=== PATIENT | female | born 1990 | race Caucasian/White ===

== ENCOUNTER → 2017-10-06 13:07 | Outpatient (REF) | payer BC, SELFPAY ==
[2017-10-13 11:42] LABS: Methylphenidate 74 ng/mL; Ritalinic Acid >10000 ng/mL
== END ==
LOC: LBN 13:07
PROVIDERS: PCP Nurse Practitioner Family; Visit Provider Nurse Practitioner Family
DX: Z51.81 Encounter for therapeutic drug level monitoring (principal); Z79.899 Other long term (current) drug therapy
CPT/HCPCS: 80360

== ENCOUNTER 2017-12-02 12:12 | Outpatient (CLI) | payer BC, SELFPAY ==
[2017-12-02 14:15] LABS: D-Dimer 112 ng/mlFEU (<500)
== END 2017-12-02 12:32 ==
PROVIDERS: PCP Nurse Practitioner Family; Visit Provider Nurse Practitioner Family
DX: R07.81 Pleurodynia (principal)
CPT/HCPCS: 36415; 85379

== ENCOUNTER 2018-01-23 09:11 | Outpatient (REF) | payer BC, SELFPAY ==
[2018-01-23 14:36] LABS: *AMPHETAMINES SCREEN URINE Negative (Negative); *BARBITURATES SCREEN URINE Negative (Negative); *BENZODIAZEPINES SCREEN URINE Negative (Negative); Cannabinoids THC Negative (Negative); Cocaine Screen,Urine Negative (Negative); METHADONE URINE SCREEN Negative (Negative); OPIATES URINE SCREEN Negative (Negative)
[2018-01-23 14:39] LABS: Tricyclic Antidepressants Negative (Negative)
[2018-01-30 08:53] LABS: Methylphenidate 369 ng/mL; Ritalinic Acid >10000 ng/mL
== END 2018-01-23 09:31 ==
LOC: LBN 09:11
PROVIDERS: PCP Nurse Practitioner Family; Visit Provider Nurse Practitioner Family
DX: F90.9 Attention-deficit hyperactivity disorder, unspecified type (principal); Z51.81 Encounter for therapeutic drug level monitoring; R03.0 Elevated blood-pressure reading, without diagnosis of hypertension
CPT/HCPCS: 80307; 80360

== ENCOUNTER 2018-03-03 15:50 | Outpatient (REF) | payer BC, SELFPAY ==
--- NOTE | 2018-03-03 15:15 | PAPFT_PTH ---
PATIENT: Rosa Walters LOC: [facility] U#:[id number] AGE/SX: 27/F ROOM: RE03/03/[address]: RAYNE Yanez : 1990 BED: DIS: 03/03/2018 SPEC #: [id number] RECD: 03/03/18 17:55 STATUS: LIBBY LAEXIS #: [id number] CHRISTINA: 03/03/18 15:[address]: Krys Prabhakar DEPT: [facility] Cytology RECD BY: Cindi Mclaughlin ENTERED: 03/03/18 17:56 SP TYPE: PAPFT OT DR: Lily Sheppard APRN Tissues: 1 - CX/ENDOCX FOR PAP SMEARS Procedures: PAP THIN PREP/UVM Screening Comments: [id number]
[2018-03-06 14:03] LABS: Chlamydia Result Negative; GC Result Negative; Specimen Description CERVICAL
== END 2018-03-03 16:10 ==
LOC: LBN 15:50
PROVIDERS: PCP Nurse Practitioner Family; Visit Provider Nurse Practitioner Family
DX: Z11.3 Encounter for screening for infections with a predominantly sexual mode of transmission (principal); Z12.4 Encounter for screening for malignant neoplasm of cervix
CPT/HCPCS: 87491; 87591; 88142

== ENCOUNTER 2018-04-01 00:07 | Outpatient (CLI) | payer BC, SELFPAY ==
[2018-04-01 10:59] LABS: Absolute Basophil Count 0.01 k/cumm (0.0-0.2); Absolute Eosinophil Count 0.36 k/cumm (0.0-0.7); Absolute Lymphocyte Count 1.94 k/cumm (1.2-3.4); Absolute Monocyte Count 0.44 k/cumm (0.11-0.7); Basophils % 0.2; Eosinophils % 6.5; HCT 41.4 % (36.0-46.0); HGB 14.5 g/dL (12.0-15.5); Mean Corpuscular Hemoglobin 30.1 pg (27.0-33.0); Mean Corpuscular Volume 86.1 fL (80-95); Mean Platelet Volume 9.9 fL (8.0-11.0); Monocytes % 7.9; Neutrophils % 50.4; Platelet Count 420 x1000/uL (130-400); RBC 4.81 m/cumm (4.00-5.20); RBC Distribution Width 11.8 % (11.7-14.6); White Blood Cell Count 5.55 k/cumm (4.4-10.8)
[2018-04-01 11:17] LABS: Bilirubin Negative (Negative); Blood Negative (Negative); Clarity Clear; Glucose Negative (Negative); Ketones Negative (Negative); Leukocyte Esterase Trace (Negative); Nitrite Negative (Negative); Urobilinogen 0.2 EU/dL (Up TO 0.2)
[2018-04-01 11:30] LABS: ALT 67 U/L (12-78); AST 35 U/L (15-37); Albumin 4.1 g/dL (3.4-5.0); Alkaline Phosphatase 114 U/L (46-116); Anion Gap 12.2 mmol/L (3-11); BUN 14 mg/dL (7-18); Bacteria Negative HPF (Negative); Bilirubin, Total 0.2 mg/dL (0.2-1.0); CO2 23.8 mmol/L (21.0-32.0); CREATININE 0.87 mg/dL (0.55-1.02); Calcium 8.6 mg/dL (8.5-10.1); Casts Negative LPF (Negative); Chloride 105 mmol/L (98-107); Crystals Negative HPF (Negative); Epithelial Cells Few HPF (Negative); Glucose 87 mg/dL (70-100); Mucus Negative (Negative); Potassium 4.2 mmol/L (3.5-5.1); RBC Negative (0-2); Sodium 141 mmol/L (136-145); TSH (W/Ref FT4) 0.86 uIU/mL (0.358-3.74); Total Protein 7.5 g/dL (6.4-8.2); WBC Negative HPF (0-5)
[2018-04-01 11:31] LABS: C & S Indicated? No
[2018-04-01 12:05] LABS: Hemoglobin A1C 5.3 % (4.5-6.2)
[2018-04-01 13:12] LABS: COMMENT (LAB VIEW ONLY) 32.07 mg/dL; Microalb ug/mg Crea 5.6 ug/mg Cr
[2018-04-03 11:18] LABS: HIV-1/2 Ag & Ab Screen Negative (NEGAT)
== END 2018-04-01 00:27 ==
PROVIDERS: PCP Nurse Practitioner Family; Visit Provider Nurse Practitioner Family
DX: I10 Essential (primary) hypertension (principal); E03.9 Hypothyroidism, unspecified; Z11.4 Encounter for screening for human immunodeficiency virus [HIV]
CPT/HCPCS: 36415; 80053; 87389; 81003; 81015; 82043; 82570; 83036; 84443; 85025

== ENCOUNTER 2018-08-07 08:53 | Outpatient (REF) | payer OTHER, SELFPAY ==
[2018-08-11 14:47] LABS: Methylphenidate 339 ng/mL; Ritalinic Acid >10000 ng/mL
== END 2018-08-07 09:13 ==
LOC: LBN 08:53
PROVIDERS: PCP Nurse Practitioner Family; Visit Provider Nurse Practitioner Family
DX: Z51.81 Encounter for therapeutic drug level monitoring (principal)
CPT/HCPCS: 80360

== ENCOUNTER 2019-10-18 19:35 | Emergency (ER) | payer OTHER, SELFPAY ==
[2019-10-18] VITALS (54 sets, daily range): BP systolic 109–168; BP diastolic 52–114; PULSE 52–138; RESP 1–30; TEMP 36.5; O2SAT 93–100
--- NOTE | 2019-10-18 19:38 | ED.GENADUL_ITS ---
Discharge Plan Disposition Patient Disposition: HOME Condition: Good Discharge Details Clinical Impression: Anaphylactic reaction to bee sting Primary Care Provider: Keeley Savage ED Provider: Brennen Martinez Hester Meds and New Rx's Prescriptions: New prednisone 20 mg tablet 40 mg PO DAILY Qty: 6 RF: 0 Continued Nexplanon 68 mg implant 1 implant SBD ONCE RF: 0 methylphenidate HCl 54 mg tablet extended release 24hr 54 mg PO QAM MDD 54 mg Qty: 28 RF: 0 methylphenidate HCl 54 mg tablet extended release 24hr 54 mg PO DAILY MDD 54 Qty: 28 RF: 0 ipratropium-albuterol 0.5 mg-3 mg(2.5 mg base)/3 mL solution for nebulization 3 ml IH Q8H Qty: 180 RF: 3 fexofenadine [Aller-ease] 180 MG tablet 2 tab PO PRN Qty: 30 RF: 0 albuterol sulfate 2.5 MG/3 ML solution for nebulization 2.5 mg Inhalation Q4H PRN Qty: 1 RF: 0 econazole 1 % cream 1 applic TP BID RF: 0 albuterol sulfate [ProAir HFA] 90 mcg/actuation HFA aerosol inhaler 1 - 2 puff Inhalation .Q4-6H PRN (Reason: shortness of breath or wheezing) Qty: 2 RF: 3 fluticasone propion-salmeterol [Advair Diskus] 250-50 mcg/dose blister with device 1 inh IH BID Qty: 3 RF: 3 epinephrine [EpiPen 2-Lee] 0.3 MG/0.3 ML auto-injector 0.3 mg IM ONCE Qty: 1 RF: 0 Discharge Instructions Instructions: Anaphylaxis (ED) Additional Instructions: Please fill prescriptions tomorrow and begin taking prednisone. Obtain new EpiPen for future use. Follow-up with primary care next week if any issues. Return to ED for throat swelling, difficulty breathing, syncope, chest pain, persistent vomiting. Referrals: Keeley Savage [Primary Care Provider] - Medical Decision Making <Nacho Keene MD - Last Filed: 10/18/19 19:52> 29 yo female with hx of asthma and allergies to bee sting for which she has an epi pen comes in after being stung by a bee. She developed dyspnea and used her epi pen and came here. She arrives tachypneic stating she is having difficulty breathing speaking in 4-5 word sentences. She has mild erythema of upper chest, wheezing in the apices bilaterally, no drooling, caox4. Suspect anaphylaxis will give another dose of epi, albuterol, famotidine and steroids and monitor, she states she has allergy to benadryl and can't take it pt has had the epi pen for 3 years unsure if it was or not. Pt signed out to Dr. Martinez for reassessment after medications, final disposition Differential Diagnosis Differential Diagnosis: anaphylaxis, allergic reaction, asthma <Brennen Martinez MD - Last Filed: 10/19/19 00:16> Patient signed out to me pending observation after receiving epinephrine, Solu- Medrol, Pepcid for bee sting allergy. She has been stable 4 hours post epinephrine. Vital signs are normal. Saturations are normal. Lungs are clear. Patient will be discharged home with prescription for prednisone and new EpiPen's. Follow-up with primary care if problems. Return to ED if recurrent throat swelling, difficulty breathing, chest pain, syncope. Lab Data Lab results reviewed: Yes I reviewed the patient's lab results. Lab results narrative: CBC, CMP unremarkable. HPI <Nacho Keene MD - Last Filed: 10/18/19 19:52> General Mode of arrival: ambulatory . Date/Time Provider Initiated Documentation: 10/18/19 19:36 . Information obtained by: patient . History of Present Illness 29 year old F presents to the emergency department with the chief complaint of shortness of breath, described as moderate, No relieving factors improve symptom(s), No exacerbating factors reported . Related Data Home Medications Medication Instructions Recorded Confirmed fexofenadine [Aller-ease] 2 tab PO PRN #30 tab-cap 04/13/12 10/18/19 albuterol sulfate 2.5 mg INHALATION Q4H PRN #1 box 07/22/14 10/25/18 ipratropium 0.5 mg-albuterol 3 mg 3 ml IH Q8H #180 ml 11/09/17 10/18/19 (2.5 mg base)/3 mL nebulization soln econazole 1 % topical cream 1 applic TP BID 08/15/18 10/18/19 etonogestrel 68 mg subdermal 1 implant SBD ONCE 08/23/18 10/18/19 implant albuterol sulfate 90 mcg/actuation 1 - 2 puff INHALATION .Q4-6H PRN 11/20/18 10/18/19 aerosol inhaler #2 device fluticasone 250 mcg-salmeterol 50 1 inh IH BID #3 unit 01/05/19 mcg/dose blistr powdr for inhalation methylphenidate HCl 54 mg 54 mg PO DAILY #28 tab MDD 54 04/16/19 10/18/19 tablet,extended release 24 hr methylphenidate HCl 54 mg 54 mg PO QAM #28 tab-cap MDD 54 mg 04/16/19 04/16/19 tablet,extended release 24 hr epinephrine [EpiPen 2-Lee] 0.3 mg IM ONCE #1 pack 10/19/19 prednisone 40 mg PO DAILY #6 tab 10/19/19 Previous Rx's Medication Instructions Recorded ipratropium 0.5 mg-albuterol 3 mg 3 ml IH Q8H #180 ml 11/09/17 (2.5 mg base)/3 mL nebulization soln albuterol sulfate 90 mcg/actuation 1 - 2 puff INHALATION .Q4-6H PRN 11/20/18 aerosol inhaler #2 device fluticasone 250 mcg-salmeterol 50 1 inh IH BID #3 unit 01/05/19 mcg/dose blistr powdr for inhalation methylphenidate HCl 54 mg 54 mg PO DAILY #28 tab MDD 54 04/16/19 tablet,extended release 24 hr methylphenidate HCl 54 mg 54 mg PO QAM #28 tab-cap MDD 54 mg 04/16/19 tablet,extended release 24 hr epinephrine [EpiPen 2-Lee] 0.3 mg IM ONCE #1 pack 10/19/19 prednisone 40 mg PO DAILY #6 tab 10/19/19 Allergies Allergy/AdvReac Type Severity Reaction Status Date / Time Sulfa (Sulfonamide Allergy Severe hives Verified 10/18/19 19:48 Antibiotics) diphenhydramine HCl Allergy Verified 10/18/19 19:48 [From Benadryl] Enviromental Allergies Allergy Uncoded 10/18/19 19:48 Review of Systems <Nacho Keene MD - Last Filed: 10/18/19 19:52> All systems reviewed & are unremarkable except as noted in HPI and below Constitutional Constitutional: Denies chills and Denies fever(s) Gastrointestinal Gastrointestinal: Denies vomiting PFSH <Nacho Keene MD - Last Filed: 10/18/19 19:52> Medical History (Updated 10/19/19 @ 00:11 by Brennen Martinez MD) ADHD Allergic rhinitis Anxiety (08/03/11) Asthma Carpal tunnel syndrome Depression (11/06/10) Surgical History SHOULDER SURGERY 2011;RIGHT Family History Mother Mental disorder Depression Father Hemochromatosis Hyperlipidemia Sister No problems noted. Brother No problems noted. Grandfather Heart disease Grandfather No problems noted. Grandmother Heart disease Grandmother No problems noted. Other Substance abuse Social History Smoking/Tobacco Use Status: Never Alcohol Intake: current Alcohol Intake frequency: a few times a month Drug use: Never Substance use type: does not use current occupation: farmworker diversified crops Pets and animals: Yes Pets and animals: dog(s) Current gender identity: female What type of physical activity do you participate in: none Do you feel safe at home: Yes Do you feel safe in your relationship?: Yes Female Reproductive History Menstrual control method: implanted (nexplanon inserted by Bethanie Keene NP XGH=[id number] EXP=11/17/2020) Exam <Nacho Keene MD - Last Filed: 10/18/19 19:52> Const General: in distress Orientation: alert HENMT Head: normal to inspection Ears: external ears normal General nose exam: external nose normal Mouth: moist mucous membranes Eyes General: appearance normal, both eyes and all related structures Neck Neck: normal visual inspection Cardio Rate: regular rate Skin General skin exam: elasticity normal Neuro General: patient alert and patient oriented x3 Extrem General: normal to inspection Psych Mental Status: mental status grossly normal Critical Care Time <Nacho Keene MD - Last Filed: 10/18/19 19:52> Critical Care Time Critical Care Time: Yes Total Critical Care Time: 45 Attestation: time spent administering IM epi, frequent reassesments and hemodynamic monitoring in patient with anaphylaxis with potential to deteriorate at any time Sign Out <Nacho Keene MD - Last Filed: 10/18/19 19:52> Sign Out Data: Sign Out Comment: anaphylaxis, epi at home and here as well, iv famotidine and steroids. Reassess Last updated by Nacho Keene MD at 10/18/19 19:46
[2019-10-18] MEDS: methylPREDNISolone SUCC 125 MG VIAL IVP (19:45)
[2019-10-18] MEDS: FAMOTIDINE 20 MG/50 ML BAG 200 MG IVPB (19:48)
[2019-10-18] MEDS: Normal Saline 1,000 ML 1000 ML IV (19:49)
[2019-10-18] MEDS: EPINEPHrine 1 MG/ML AMP pres-free 0.3 MG IM (19:54)
[2019-10-18] MEDS: Albuterol/Ipratropium 3 ML UPD VIAL UPD (19:55)
[2019-10-18 20:03] LABS: Abs Immature Grans 0.02 10^3/uL (0.0-0.06); Absolute Eosinophil Count 0.29 10^3/uL (0.0-0.7); Absolute Lymphocyte Count 4.13 10^3/uL (1.2-3.4); Absolute Monocyte Count 0.79 10^3/uL (0.1-0.8); Basophils % 0.4; Eosinophils % 2.6; HCT 41.3 % (36.0-46.0); HGB 14.3 g/dL (11.2-15.7); Immature Grans % 0.2; Lymphocytes % 36.7; MCH 30.6 pg (27.0-33.0); MCHC 34.6 % (32.0-36.0); MCV 88.4 fL (80-95); MPV 10.1 fL (8.0-11.0); Neutrophils % 53.1; Nucleated RBC 0 %; Platelet Count 425 10^3/uL (130-400); RBC 4.67 10^6/uL (3.93-5.22); RDW 11.7 % (11.7-14.6); RDW-SD 37.6 fL; WBC 11.24 10^3/uL (4.4-10.8)
[2019-10-18 20:04] LABS: Absolute Basophil Count 0.04 10^3/uL (0.0-0.2); Absolute Neutrophil Count 5.97 10^3/uL (1.2-6.7)
[2019-10-18] MEDS: Albuterol/Ipratropium 3 ML UPD VIAL (20:09)
[2019-10-18 20:18] LABS: ALT 39 U/L (14-59); AST 33 U/L (15-37); Albumin 4.3 g/dL (3.4-5.0); Alkaline Phosphatase 120 U/L (46-116); Anion Gap 13.9 mmol/L (3-11); BUN 17 mg/dL (7-18); Bilirubin, Total 0.3 mg/dL (0.2-1.0); CO2 20.1 mmol/L (21.0-32.0); CREATININE 1.21 mg/dL (0.55-1.02); Calcium 9.7 mg/dL (8.5-10.1); Chloride 104 mmol/L (98-107); Estimated GFR 53.38 (mL/min/1.73m2); Glucose 98 mg/dL (74-106); Potassium 3.5 mmol/L (3.5-5.1); Sodium 138 mmol/L (136-145); Total Protein 7.5 g/dL (6.4-8.2)
== END 2019-10-19 00:20 | disposition home or self-care (01) ==
PROVIDERS: Emergency Medicine; Emergency Provider Emergency Medicine; PCP Nurse Practitioner Family
DX: T63.441A Toxic effect of venom of bees, accidental (unintentional), initial encounter (principal); R06.00 Dyspnea, unspecified
CPT/HCPCS: 80053; 94640; 96361; 96374; 96375; 99291; 85025; J0171; J2930; J7620

== ENCOUNTER 2020-12-05 21:43 | Emergency (ER) | payer OTHER, SELFPAY ==
[2020-12-05 21:45] VITALS: BP 159/94; PULSE 74; RESP 18; TEMP 36.9; O2SAT 100
--- NOTE | 2020-12-05 21:52 | ED.GENADUL_ITS ---
Discharge Plan Disposition Patient Disposition: HOME Condition: Stable Discharge Details Clinical Impression: Laceration of hand, left Primary Care Provider: Keeley Savage ED Provider: Nacho Keene Home Meds and New Rx's Prescriptions: Continued methylphenidate HCl 54 mg tablet extended release 24hr 54 mg PO QAM MDD 54 mg Qty: 28 RF: 0 methylphenidate HCl 54 mg tablet extended release 24hr 54 mg PO DAILY MDD 54 Qty: 28 RF: 0 ipratropium-albuterol 0.5 mg-3 mg(2.5 mg base)/3 mL solution for nebulization 3 ml IH Q8H Qty: 180 RF: 3 fexofenadine [Aller-ease] 180 MG tablet 2 tab PO PRN Qty: 30 RF: 0 albuterol sulfate 2.5 MG/3 ML solution for nebulization 2.5 mg Inhalation Q4H PRN Qty: 1 RF: 0 albuterol sulfate [ProAir HFA] 90 mcg/actuation HFA aerosol inhaler 1 - 2 puff Inhalation .Q4-6H PRN (Reason: shortness of breath or wheezing) Qty: 2 RF: 3 fluticasone propion-salmeterol [Advair Diskus] 250-50 mcg/dose blister with device 1 inh IH BID Qty: 3 RF: 3 epinephrine [EpiPen 2-Lee] 0.3 MG/0.3 ML auto-injector 0.3 mg IM ONCE Qty: 1 RF: 0 lamotrigine 25 mg tablet 25 mg PO BID RF: 0 Discharge Instructions Instructions: Laceration (ED) Additional Instructions: if you have spreading redness or yellow/white discharge from the wound return to the emergency department for evaluation Medical Decision Making 30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 She went to catch it and it broke and caused a 1cm superficial laceration to the left anterior ring finger just distal to the dip joint. Normal sensation and pulses, full range of motion of the finger, no findings to suggest tendon or neurovascular injury. wound is superficial, irrigated and no palpable foreign body or visible foreign body on u/s. Will close with sutures. 2 chromic gut sutures placed without complications, advised of return precautions and sutures should dissolve on their own Differential Diagnosis Differential Diagnosis: laceration, abrasion HPI General Mode of arrival: ambulatory . Date/Time Provider Initiated Documentation: 12/05/20 21:43 . Limitations to Documentation: no limitations . Information obtained by: patient . History of Present Illness 30 year old F presents to the emergency department with the chief complaint of left ring finger cut, described as mild, and it has been constant. No relieving fa ctors improve symptom(s), No exacerbating factors reported . Patient notes no other symptoms.. Patient did receive the following treatments prior to arrival, none Related Data Home Medications Medication Instructions Recorded Confirmed fexofenadine [Aller-ease] 2 tab PO PRN #30 tab-cap 04/13/12 12/05/20 albuterol sulfate 2.5 mg INHALATION Q4H PRN #1 box 07/22/14 12/05/20 ipratropium 0.5 mg-albuterol 3 mg 3 ml IH Q8H #180 ml 11/09/17 12/05/20 (2.5 mg base)/3 mL nebulization soln albuterol sulfate 90 mcg/actuation 1 - 2 puff INHALATION .Q4-6H PRN 11/20/18 12/05/20 aerosol inhaler #2 device fluticasone 250 mcg-salmeterol 50 1 inh IH BID #3 unit 01/05/19 12/05/20 mcg/dose blistr powdr for inhalation methylphenidate HCl 54 mg 54 mg PO DAILY #28 tab MDD 54 04/16/19 12/05/20 tablet,extended release 24 hr methylphenidate HCl 54 mg 54 mg PO QAM #28 tab-cap MDD 54 mg 04/16/19 12/05/20 tablet,extended release 24 hr epinephrine [EpiPen 2-Lee] 0.3 mg IM ONCE #1 pack 10/19/19 12/05/20 lamotrigine 25 mg PO BID 12/05/20 12/05/20 Previous Rx's Medication Instructions Recorded ipratropium 0.5 mg-albuterol 3 mg 3 ml IH Q8H #180 ml 11/09/17 (2.5 mg base)/3 mL nebulization soln albuterol sulfate 90 mcg/actuation 1 - 2 puff INHALATION .Q4-6H PRN 11/20/18 aerosol inhaler #2 device fluticasone 250 mcg-salmeterol 50 1 inh IH BID #3 unit 01/05/19 mcg/dose blistr powdr for inhalation methylphenidate HCl 54 mg 54 mg PO DAILY #28 tab MDD 54 04/16/19 tablet,extended release 24 hr methylphenidate HCl 54 mg 54 mg PO QAM #28 tab-cap MDD 54 mg 04/16/19 tablet,extended release 24 hr epinephrine [EpiPen 2-Lee] 0.3 mg IM ONCE #1 pack 10/19/19 Allergies Allergy/AdvReac Type Severity Reaction Status Date / Time Sulfa (Sulfonamide Allergy Severe hives Verified 12/05/20 21:51 Antibiotics) diphenhydramine HCl Allergy Verified 12/05/20 21:51 [From Benadryl] Enviromental Allergies Allergy Uncoded 12/05/20 21:51 General Stated Complaint: Laceration MALLIKA: 4 Review of Systems All systems reviewed & are unremarkable except as noted in HPI and below Constitutional Constitutional: Denies chills, Denies fever(s) and Denies weakness Cardiovascular Cardiovascular: Denies chest pain and Denies dyspnea Respiratory Respiratory: Denies cough and Denies dyspnea Gastrointestinal Gastrointestinal: Denies abdominal pain, Denies nausea and Denies vomiting Musculoskeletal Musculoskeletal: Denies joint swelling Neurologic Neurologic: Denies weakness Psychiatric Psychiatric: Denies depression [facility] Medical History (Updated 12/05/20 @ 22:06 by Nacho Keene MD) ADHD Allergic rhinitis Anxiety (08/03/11) Asthma Carpal tunnel syndrome Depression (11/06/10) Surgical History SHOULDER SURGERY 2011;RIGHT Family History Mother Mental disorder Depression Father Hemochromatosis Hyperlipidemia Sister No problems noted. Brother No problems noted. Grandfather Heart disease Grandfather No problems noted. Grandmother Heart disease Grandmother No problems noted. Other Substance abuse Social History Smoking/Tobacco Use Status: Never Smoking risk assessment performed?: Yes Alcohol Intake: current Alcohol Intake frequency: a few times a week Alcohol type: beer and hard liquor Drug use: Never Substance use type: does not use current occupation: adoption social worker Pets and animals: Yes Pets and animals: dog(s) Current gender identity: female What type of physical activity do you participate in: none Do you feel safe at home: Yes Do you feel safe in your relationship?: Yes Female Reproductive History Menstrual control method: implanted (nexplanon inserted by Bethanie Keene NP PPN=[id number] EXP=11/17/2020) Exam Const General: no acute distress Orientation: alert [facility] Head: normal to inspection Ears: external ears normal General nose exam: external nose normal Mouth: moist mucous membranes Eyes General: appearance normal, both eyes and all related structures Neck Neck: normal visual inspection Resp Effort & Inspection: normal respiratory effort and able to speak in complete sentences Cardio Rate: regular rate Skin General skin exam: no rashes or lesions noted Neuro General: patient alert and patient oriented x3 Extrem General: full ROM and capillary refill normal Psych Mental Status: mental status grossly normal Course Vital Signs Vital signs: Vital Signs Temperature 36.9 C 12/05/20 21:45 Pulse 74 12/05/20 21:45 Respiratory Rate 18 12/05/20 21:45 Blood Pressure 159/94 H 12/05/20 21:45 Pulse Oximetry 100 12/05/20 21:45 Temperature 36.9 C 12/05/20 21:45 Temperature Source Oral 12/05/20 21:45 Pulse 74 12/05/20 21:45 Respiratory Rate 18 12/05/20 21:45 Blood Pressure 159/94 H 12/05/20 21:45 Blood Pressure Position Sitting 12/05/20 21:45 Pulse Oximetry 100 12/05/20 21:45 Oxygen Delivery Method Room Air 12/05/20 21:45 Oxygen Flow Rate 0 12/05/20 21:45 Pain Level 0 12/05/20 21:45 Procedures Laceration Laceration 1: Site: hand Side (If applicable): left Size (cm): 1 Description: linear Depth: simple, single layer Local Anesthetic: Lidocaine 1% Amount of anesthesia used (mL): 6 Pre-repair: wound explored and irrigated extensively Skin layer closed with: other (chormic gut) Size (cm): 5-0 Number of sutures: 2 Technique: simple, interrupted
--- NOTE | 2020-12-05 22:05 | NUR.NOTE ---
Ambulates to restroom with steady gait. Laceration repaired. Will place bandaid.Nursing Note:
[2020-12-05 22:10] VITALS: BP 136/84; RESP 18
== END 2020-12-05 22:10 | disposition home or self-care (01) ==
PROVIDERS: Emergency Provider Emergency Medicine; PCP Nurse Practitioner Family
DX: S61.211A Laceration without foreign body of left index finger without damage to nail, initial encounter (principal); W25.XXXA Contact with sharp glass, initial encounter
CPT/HCPCS: 12001

== ENCOUNTER 2021-12-25 18:04 | Outpatient (REF) | payer OTHER, SELFPAY ==
[2021-12-25 20:40] LABS: Abs Immature Grans 0.01 10^3/uL (0.0-0.06); Absolute Basophil Count 0.03 10^3/uL (0.0-0.2); Absolute Eosinophil Count 0.27 10^3/uL (0.0-0.7); Absolute Lymphocyte Count 1.78 10^3/uL (1.2-3.4); Absolute Monocyte Count 0.47 10^3/uL (0.1-0.8); Absolute Neutrophil Count 4.16 10^3/uL (1.2-6.7); Basophils % 0.4; HCT 41.1 % (36.0-46.0); HGB 13.9 g/dL (11.2-15.7); Immature Grans % 0.1; Lymphocytes % 26.5; MCH 30.2 pg (27.0-33.0); MCHC 33.8 % (32.0-36.0); MCV 89 fL (80-95); MPV 9.9 fL (8.0-11.0); Platelet Count 333 10^3/uL (130-400); RDW 11.3 % (11.7-14.6); RDW-SD 36.7 fL; WBC 6.72 10^3/uL (4.4-10.8)
[2021-12-25 21:24] LABS: ALT 53 U/L (14-59); AST 32 U/L (15-37); Albumin 3.7 g/dL (3.4-5.0); Alkaline Phosphatase 87 U/L (46-116); Anion Gap 11.8 mmol/L (3-11); BUN 10 mg/dL (7-18); Bilirubin, Total 0.3 mg/dL (0.2-1.0); CO2 22.2 mmol/L (21.0-32.0); CREATININE 0.9 mg/dL (0.55-1.02); Calcium 8.8 mg/dL (8.5-10.1); Chloride 104 mmol/L (98-107); Estimated GFR 88.75 (mL/min/1.73m2); Glucose 85 mg/dL (74-106); Lipase 72 U/L (73-393); Potassium 4.1 mmol/L (3.5-5.1); Sodium 138 mmol/L (136-145); Total Protein 6.8 g/dL (6.4-8.2)
[2021-12-27 10:33] LABS: COVID-19 RT-PCR UVMMC Result Negative (Negative)
== END 2021-12-25 18:05 | disposition home or self-care (01) ==
LOC: LBN 18:04
PROVIDERS: PCP Nurse Practitioner Family; Visit Provider Physician Assistant Medical
DX: Z20.822 Contact with and (suspected) exposure to COVID-19 (principal); R10.9 Unspecified abdominal pain
CPT/HCPCS: 80053; 83690; U0003; 85025